=== PATIENT | female | born 1930 | race Caucasian/White ===

== ENCOUNTER 2016-12-07 17:55 | Inpatient (IN) | payer OTHER, BC ==
[~2016-12-07] VITALS: Ht 172.7 cm; Wt 65.8 kg
--- NOTE | ~2016-12-07 | HC ---
[facility] [place] [address] CONSULTATION Name: HOSEA LEDBETTER Room #: 443-P [facility] IN M.R.#: [id number] Admission: 12/07/16 Attend Phys: Oniel Fajardo MD Discharge: 12/09/16 Date of : 32 Report #: [id number] THIS REPORT FOR: //name// [facility]: [facility] REASON FOR CONSULTATION: Chest pain. HISTORY OF PRESENT ILLNESS: The patient is an 86-year-old female with history of diabetes, hypertension who presents from her halfway with chest pain. She reports that she has a sharp chest pain that occurs on the left lateral side of her chest that was associated with some radiation down her left arm. She reports that this pain is worse with movement, especially moving her left arm or twisting. When I pushed on this area she jumped and said this is exactly the same pain she had. She denies any exertional chest pressure. She denies any PND, orthopnea. She denies presyncope, she denies exertional dyspnea. PAST MEDICAL HISTORY: 1. Diabetes. 2. Hypertension. 3. Celiac trunk stent. SOCIAL HISTORY: She is a former smoker. Lives in a halfway. FAMILY HISTORY: Noncontributory. ALLERGIES: No known drug allergies. MEDICATIONS: Include antibiotics, losartan, gabapentin, trazodone, insulin, docusate, aspirin, alprazolam. REVIEW OF SYSTEMS: Twelve point review of systems was performed and was negative other than what we mentioned above. PHYSICAL EXAMINATION: VITAL SIGNS: Temperature is 36.4, pulse 66, respiration 20, blood pressure 124/62, sats are 99%. GENERAL: She is in no acute distress. HEENT: Oropharynx is clear. NECK: Supple. No thyromegaly. HEART: Regular rate and rhythm with no murmurs, rubs or gallops. She does not have elevated jugular venous pressure. She has reproducible chest pain along the left lateral ribs. This is an area of point tenderness. LUNGS: Clear bilaterally with no wheezes or crackles. ABDOMEN: Soft, nontender, nondistended. No hepatosplenomegaly. EXTREMITIES: No clubbing, cyanosis, edema. NEUROLOGIC: Cranial nerves 2-[address] [address] CONSULTATION Name: HOSEA LEDBETTER Room #: 443-P [facility] IN .R.#: [id number] Admission: 12/07/16 Attend Phys: Oniel Fajardo MD Discharge: 12/09/16 Date of : 32 Report #: [id number] LABORATORY DATA: Troponins are negative. Her CBC shows hemoglobin 12.4, white count 5.6, platelets 324. Her sodium is 133, potassium is 4.0, creatinine is 1.0, proBNP is 228. Her 12-lead EKG, I personally reviewed, shows normal sinus rhythm with no evidence of ischemia. Her chest x-ray shows no acute process. There is no evidence of CHF or pneumonia on the chest x-ray. IMPRESSION: In summary, the patient is an 86-year-old with a history of diabetes, hypertension, presenting with noncardiac chest pain, most likely costochondritis, which is musculoskeletal in nature. I recommend supportive medications for treatment of this discomfort. I would recommend an echocardiogram to evaluate her LV size and function. If this is normal, she is cleared for discharge. By: [id number] Alexy Saavedra MD /nt
--- NOTE | ~2016-12-07 | EKG ---
[address] [address] ELECTROCARDIOGRAM REPORT Name: HOSEA LEDBETTER Room #: 443-P ADM IN M.R.#: [id number] Admission: 12/07/16 Attend Phys: Oniel Fajardo MD Discharge: Date of : 32 Report #: [id number] THIS REPORT FOR: //name// [facility] ED Test Date: 2016-12-07 Test Time: 17:54:11 Pat Name: HOSEA LEDBETTER Department: Room: 443 Gender: F Technical Sales Manager: STEFANIE : 1930 Requested By: Sharon Loza Order Number: [id number] MD: Alexy Saavedra Measurements Intervals [place] Rate: 68 P: 70 SD: 186 QRS: 37 QRSD: 101 T: 20 QT: 400 QTc: 426 Interpretive Statements Sinus rhythm Compared to ECG 01/02/2016 16:41:20 No significant changes Electronically Signed On 12-08-2016 20:07:08 CDT by Alexy Saavedra [email or web address] <ELECTRONICALLY SIGNED> By: Alexy Saavedra MD 12/08/162006 53 53 Alexy Saavedra MD /JOHN
--- NOTE | ~2016-12-07 | 2DMMODE ---
[facility] [place] [address] 2 D/M-MODE ECHOCARDIOGRAM Name: HOSEA LEDBETTER Room #: 443-P [facility] IN M.R.#: [id number] Admission: 12/07/16 Attend Phys: Oniel Fajardo MD Discharge: Date of : 32 Date of Service: 12/09/16 1417 Report #: [id number] THIS REPORT FOR: //name// APPROVED REPORT Study performed: 12/09/2016 11:03:33 EXAM: Comprehensive 2D, Doppler, and color-flow Echocardiogram Patient Location: Echo lab/Room 443 Blood Pressure: 147/68 mmHg HR: 67 bpm Rhythm: NSR Other Information Study Quality: Adequate/Low parasternal window. Indications Noncardiac chest pain. Hx: CAD, HTN, HLP, DM 2D Dimensions RVDd: 31.93 mm LVEF(%): 54.05 (>50%) IVSd: 11.29 (7-11mm) LVOT Diam: 21.65 (18-24mm) LVDd: 38.77 mm PWd: 10.28 (7-11mm) LVDs: 28.12 (25-40mm) Aortic Root: 35.38 mm Hooper's LVEF: 54.05 % Volumes Left Atrial Volume (Systole) Single Plane 4CH: 18.48 mL Single Plane 2CH: 24.53 mL LA ESV Index: 14.00 mL/m2 Aortic Valve AoV Peak Gianfranco.: 1.27 m/s AI PHT: 409.81 ms AO Peak Gr.: 6.44 mmHg LV Max P.31 mmHg LV Max: 1.04 m/s AI Vmax: 3.92 m/s AI Charles: 2.77 m/s2 Mitral Valve [facility] [place] [address] [place] [address] 2 D/M-MODE ECHOCARDIOGRAM Name: ANATOLYHOSEA Room #: 443-P [facility] IN .R.#: [id number] Admission: 12/07/16 Attend Phys: Oniel Fajardo MD Discharge: Date of : 32 Date of Service: 12/09/16 1417 Report #: [id number] MV PHT: 47.27 ms MV E Max Gianfranco.: 0.68 m/s E/A Ratio: 0.8 MV A Gianfranco.: 0.90 m/s MV Decel. Time: 163.01 ms Pulmonary Valve PV Peak Gianfranco.: 0.65 m/s PV Peak Gr.: 1.71 mmHg Tricuspid Valve TR Peak Gianfranco.: 2.08 m/s RAP Estimate: 5.00 mmHg TR Peak Gr.: 17.23 mmHg RVSP: 22.00 mmHg Left Ventricle The left ventricle is normal size. There is normal LV segmental wall motion. Mild basal septal hypertrophy is present. Left ventricular systolic function is normal. LVEF is 55%. Grade I - abnormal relaxation pattern. Right Ventricle The right ventricle is normal size. The right ventricular systolic function is normal. Atria The left atrium size is normal. The right atrium size is normal. Aortic Valve The Aortic valve is sclerotic. Mild aortic regurgitation. There is no aortic valvular stenosis. Mitral Valve Mitral valve leaflets are thickened. Trace mitral regurgitation. Tricuspid Valve The tricuspid valve is normal in structure. There is mild tricuspid regurgitation. The right atrial pressure is estimated at 5 mmHg. Estimated PAP is 22mmHg. Pulmonic Valve The pulmonary valve is normal in structure. Mild pulmonic regurgitation. Great Vessels The aortic root is normal in size. Ascending aorta is not well visualized. IVC is normal in size and collapses >50% with inspiration. [address] [address] 2 D/M-MODE ECHOCARDIOGRAM Name: HOSEA LEDBETTER Room #: 443-P [facility] IN [facility]#: [id number] Admission: 12/07/16 Attend Phys: Oniel Fajardo MD Discharge: Date of : 32 Date of Service: 12/09/16 1417 Report #: [id number] Pericardium There is no pericardial effusion. <Conclusion> The left ventricle is normal size. Left ventricular systolic function is normal. The right ventricle is normal size. The left atrium size is normal. Mild aortic regurgitation. Trace mitral regurgitation. There is mild tricuspid regurgitation. The right atrial pressure is estimated at 5 mmHg. Estimated PAP is 22mmHg. <ELECTRONICALLY SIGNED> By: Orlando Whittington MD 12/09/16 141 16 16 Orlando Whittington MD /INF
[~2016-12-07 17:55] MED LIST: ADULT LOW DOSE81 MG PO; ALPRAZOLAM 0.0.25 M1 PO; AUGMENTIN 500-1 EACH PO; BUDEPRION SR100 MG PO; CALCIUM 500 WI1 EAC3 PO; CALCIUM CITRAT1 EA14 PO; COLACE100 MG PO; COQ-10100 MG PO; COZAAR 50 MG TA50 M1 PO; ENOXAPARIN30 MG/0.1 SUBQ; FISH OIL 1,0001 EAC5 PO; GLUCOPHAGE500 MG PO; HYDROCODON-ACE1 EACH PO; HYDROCODONE-APA1 TA1 PO; IRON325 PO; LIDODERM 5%1 PATC1 TOP; LIPITOR10 MG PO; LIPITOR20 MG PO; LORTAB 5-500 T1 EAC1 PO; LOSARTAN-HCTZ1 EAC1 PO; MIRALAX17 GM PO; MOBIC15 MG PO; MOTION RELIEF25 MG PO; MULTIVITAMINS PO; NEURONTIN 300M300 M2 PO; NORCO 7.5-3251 EACH; NOVOLOG100 UNIT/1 SUBQ; OCUVITE EXTRA1 EACH PO; OCUVITE LUTEIN1 EAC1 PO; OCUVITE TABLET1 EAC1 PO; OXYCONTIN10 M1 PO; PERCOCET 7.5-31 EACH PO; PHENERGAN 25 MG25 M1 PO; PLAVIX 75 MG TA75 M1 PER TUBE; PLAVIX 75 MG TA75 MG PO; PROBIOTIC1 EAC1 PO; PROTONIX40 M2 PO; PROZAC 10 MG CA10 MG PO; SENOKOT-S1 TA1 PO; TRAMADOL 50 MG50 MG PO; TYLENOL325 MG PO; VITAMIN D1000 UNI1 PO; WELCHOL PO; WELLBUTRIN 100100 MG PO; ZOCOR20 MG PO
[2016-12-07 17:57] VITALS: BP 117/92
[2016-12-07 18:11] LABS: ABSOLUTE NEUTROPHILS 3.4 thou/uL (1.4-8.2); BASOPHILS 0.4 % (0.0-2.0); EOSINOPHILS 4.7 % (0.0-3.0); HEMATOCRIT 36.7 % (37.0-47.0); HEMOGLOBIN 12.4 gm/dL (12.0-15.0); LYMPHOCYTES 25.6 % (24.0-44.0); MCHC 33.9 g/dL (28.0-37.0); MCV 85.6 fL (80.0-100.0); MONOCYTES 8.5 % (1.0-8.0); PLATELET COUNT 325 thou/uL (150-400); POLYS 60.8 % (36.0-66.0); RBC 4.29 mil/uL (4.20-5.00); RDW 14.6 % (10.5-14.5); WBC 5.6 thou/uL (4.0-11.0)
[2016-12-07 18:14] LABS: MANUAL DIFF NO
[2016-12-07 18:19] LABS: ANION GAP 5 mmol/L (7-16); BUN 17 mg/dL (7-18); CALCIUM 9.3 mg/dL (8.5-10.1); CHLORIDE 100 mmol/L (98-107); CO2 28 mmol/L (21-32); GLUCOSE 127 mg/dL (70-99); SODIUM 133 mmol/L (136-145)
[2016-12-07 18:28] LABS: TROPONIN-I < 0.04 ng/mL (<0.04-0.07)
[2016-12-07 18:42] LABS: MAGNESIUM 1.9 mg/dL (1.8-2.4)
[2016-12-07] MEDS ORDERED: TRAZODONE HCL100 MG PO (19:25)
[2016-12-07] MEDS ORDERED: PROTONIX 20 MG20 M1 PO (19:27)
[2016-12-07] MEDS ORDERED: METFORMIN HCL500 MG PO (19:31)
[2016-12-07] MEDS ORDERED: XANAX 0.25 MG0.25 MG PO (19:31)
[2016-12-07 20:05] LABS: URINE BILIRUBIN NEGATIVE (Negative); URINE BLOOD TRACE (Negative); URINE COLOR YELLOW; URINE GLUCOSE-RANDOM* NEGATIVE (Negative); URINE KETONES NEGATIVE (Negative); URINE LEUKOCYTES-REFLEX 2+ (Negative); URINE PROTEIN (DIPSTICK) NEGATIVE (Negative); URINE SPECIFIC GRAVITY <= 1.005 (1.003-1.035); URINE UROBILINOGEN 0.2 E.U./dl (0.2-1.0)
[2016-12-07 20:36] LABS: CASTS None Seen /LPF (None Seen); SQUAMOUS None Seen /LPF (0-3)
[2016-12-07 20:37] LABS: CRYSTALS None Seen /LPF (None Seen); URINE RBC 0-2 Rare /HPF (0-2); URINE WBC-REFLEX 6-15 Few /HPF (0-5)
[2016-12-07 23:33] VITALS: BP 133/60
[2016-12-08 08:00] VITALS: BP 124/62
[2016-12-08 10:39] LABS: CHOLESTEROL 188 mg/dL (<200); HDL CHOLESTEROL 92 mg/dL (>40); LDL CHOLESTEROL 86 mg/dL (<100); TRIGLYCERIDE 52 mg/dL (<150); TROPONIN-I < 0.04 ng/mL (<0.04-0.07); VLDL 10 mg/dL (<40)
[2016-12-08 12:00] VITALS: BP 140/57
[2016-12-08 16:00] VITALS: BP 125/62
[2016-12-09] VITALS (9 sets, daily range): BP systolic 127–147; BP diastolic 64–89
[2016-12-09] MEDS ORDERED: LEVAQUIN 250 M250 MG PO (16:12)
== END 2016-12-09 18:10 | disposition home or self-care (01) | DRG 313 ==
LOC: ER 17:55 → EROBS 19:59 → 4S 19:59
PROVIDERS: Emergency Medicine; Nurse Practitioner
DX: R07.89 Other chest pain (principal); N39.0 Urinary tract infection, site not specified; Z96.698 Presence of other orthopedic joint implants; E78.5 Hyperlipidemia, unspecified; F41.9 Anxiety disorder, unspecified; G47.00 Insomnia, unspecified; I10 Essential (primary) hypertension; E11.42 Type 2 diabetes mellitus with diabetic polyneuropathy; I25.10 Atherosclerotic heart disease of native coronary artery without angina pectoris; K58.9 Irritable bowel syndrome, unspecified; Z90.49 Acquired absence of other specified parts of digestive tract; Z98.42 Cataract extraction status, left eye; Z98.41 Cataract extraction status, right eye; Z87.81 Personal history of (healed) traumatic fracture; Z87.891 Personal history of nicotine dependence; Z79.82 Long term (current) use of aspirin; Z79.899 Other long term (current) drug therapy
CPT/HCPCS: 10100

== ENCOUNTER 2017-09-16 17:49 | Inpatient (IN) | payer OTHER, BC ==
[~2017-09-16] VITALS: Ht 172.7 cm; Wt 63.5 kg
--- NOTE | ~2017-09-16 | EKG ---
[place] [address] [facility] [place] [address] ELECTROCARDIOGRAM REPORT Name: HOSEA LEDBETTER Room #: 170-16 ADM IN M.R.#: [id number] Admission: 09/16/17 Attend Phys: Christ Hurst Discharge: Date of : 32 Report #: [id number] THIS REPORT FOR: //name// [facility] ED Test Date: 2017-09-16 Test Time: 20:34:36 Pat Name: HOSEA LEDBETTER Department: Room: 170 Gender: F Overage Shortage And Damage Clerk: ERIK : 1930 Requested By: Facundo John Order Number: [id number] MD: Sorin Soto Measurements Intervals [place] Rate: 73 P: 59 [place]: 173 QRS: 2 QRSD: 95 T: 0 QT: 404 QTc: 446 Interpretive Statements Sinus rhythm Inferior infarct, age indeterminate Compared to ECG 12/07/2016 17:54:11 Inferior Q waves are more prominent Electronically Signed On 09-17-2017 8:32:08 DIRECTOR SALES SUPPORT by Sorin Soto [email or web address] <ELECTRONICALLY SIGNED> By: Sorin Soto MD, [facility] 09/17/17831 33 33 Sorin Soto MD, [facility] /EPI
[~2017-09-16 17:49] MED LIST changes: +LEVAQUIN 250 M250 MG PO; +METFORMIN HCL500 MG PO; +PROTONIX 20 MG20 M1 PO; +TRAZODONE HCL100 MG PO; +XANAX 0.25 MG0.25 MG PO
[2017-09-16 18:04] VITALS: BP 125/44
[2017-09-16 19:22] LABS: URINE BLOOD TRACE (Negative); URINE CLARITY CLEAR; URINE COLOR YELLOW; URINE GLUCOSE-RANDOM* NEGATIVE (Negative); URINE KETONES 1+ (Negative); URINE LEUKOCYTES NEGATIVE (Negative); URINE NITRITE NEGATIVE (Negative); URINE PROTEIN (DIPSTICK) 2+ (Negative); URINE SPECIFIC GRAVITY >= 1.030 (1.005-1.035); URINE UROBILINOGEN 0.2 E.U./dl (0.2-1.0)
[2017-09-16 19:23] LABS: ICTOTEST (BILI CONFIRMATORY) Negative (Negative); URINE BILIRUBIN NEGATIVE (Negative)
[2017-09-16 19:33] LABS: CASTS None Seen /LPF (None Seen); CRYSTALS None Seen /LPF (None Seen); SQUAMOUS 0-3 Few /LPF (0-3)
[2017-09-16 19:34] LABS: BACTERIA 1-9 Few /HPF (None Seen); URINE RBC 0-2 Rare /HPF (0-2); URINE WBC None Seen /HPF (0-5)
[2017-09-16 20:58] LABS: ABSOLUTE NEUTROPHILS 5.2 thou/uL (1.4-8.2); BASOPHILS 0.5 % (0.0-2.0); EOSINOPHILS 0.8 % (0.0-3.0); HEMATOCRIT 40.4 % (37.0-47.0); HEMOGLOBIN 13.6 gm/dL (12.0-15.0); LYMPHOCYTES 17.7 % (24.0-44.0); MCHC 33.8 g/dL (28.0-37.0); MCV 85.8 fL (80.0-100.0); MONOCYTES 8.6 % (1.0-8.0); PLATELET COUNT 325 thou/uL (150-400); POLYS 72.4 % (36.0-66.0); RDW 13.5 % (10.5-14.5); WBC 7.2 thou/uL (4.0-11.0)
[2017-09-16 21:08] LABS: ANION GAP 10 mmol/L (7-16); BUN 21 mg/dL (7-18); CALCIUM 9.5 mg/dL (8.5-10.1); CHLORIDE 101 mmol/L (98-107); CO2 25 mmol/L (21-32); CREATININE 1.2 mg/dL (0.6-1.0); GLUCOSE 121 mg/dL (74-106); POTASSIUM 3.1 mmol/L (3.5-5.1); SODIUM 136 mmol/L (136-145)
[2017-09-16 21:18] LABS: TROPONIN-I < 0.04 ng/mL (<0.06)
[2017-09-16 23:58] VITALS: BP 139/116
[2017-09-17 10:17] VITALS: BP 148/72
[2017-09-17 13:22] VITALS: BP 148/72
[2017-09-17 13:43] VITALS: BP 160/71
[2017-09-17 19:26] VITALS: BP 138/64
[2017-09-18 04:11] VITALS: BP 148/59
[2017-09-18 07:42] VITALS: BP 158/76
[2017-09-18 10:04] VITALS: BP 158/76
[2017-09-18 10:14] VITALS: BP 158/76
== END 2017-09-18 11:00 | disposition home health service (06) | DRG 689 ==
LOC: ER 17:49 → 3W 21:40 → EROBS 21:40 → 3W 09-17 13:48
PROVIDERS: Emergency Medicine; Physician Assistant
DX: N39.0 Urinary tract infection, site not specified (principal); E43 Unspecified severe protein-calorie malnutrition; E87.6 Hypokalemia; F41.9 Anxiety disorder, unspecified; E86.0 Dehydration; I10 Essential (primary) hypertension; E11.9 Type 2 diabetes mellitus without complications; Z98.42 Cataract extraction status, left eye; Z98.41 Cataract extraction status, right eye; Z90.49 Acquired absence of other specified parts of digestive tract; Z87.81 Personal history of (healed) traumatic fracture; Z87.891 Personal history of nicotine dependence
CPT/HCPCS: 10879

== ENCOUNTER 2019-04-14 05:25 | Day surgery (SDC) | payer OTHER, BC ==
[~2019-04-14] VITALS: Ht 172.7 cm; Wt 66.2 kg
[~2019-04-14 05:25] MED LIST changes: +LOSARTAN POTAS100 MG PO; +STOOL SOFTENER100 MG PO
[2019-04-14 08:41] VITALS: BP 135/88
--- NOTE | 2019-04-14 08:48 | EKG ---
[address] [place] [address] ELECTROCARDIOGRAM REPORT Name: HOSEA LEDBETTER Room #: 150-4 [facility].RAmandeep#: [id number] ������������������ Admission: 04/14/19 ������������������ Attend Phys: Rigoberto Fontenot Discharge: ������������������ Date of : 32 Report #: [id number] ����������������������������������������������������������������� [id number] THIS REPORT FOR: //name// [facility] Test Date: 2019-04-14 Test Time: 08:41:11 Pat Name: HOSEA LEDBETTER Department: Room: 150 4 Gender: F Assistance Coordinator: MACO : 1930 Requested By: Rigoberto Cross Order Number: [id number] MD: Sorin Soto Measurements Intervals [place] Rate: 66 P: 48 [place]: 190 QRS: 7 QRSD: 93 T: 24 QT: 416 QTc: 436 Interpretive Statements Sinus rhythm Small inferior Q waves Compared to ECG 09/16/2017 20:34:36 No significant change was found Electronically Signed On 04-14-2019 8:48:32 CDT by Sorin Soto [email or web address] ��������������������������������������������� <ELECTRONICALLY SIGNED> ���������������������������������������� By: Sorin Soto MD, [facility] ��������������������������������������������� 04/14/19 0848 0 0 Sorin Soto MD, [facility] /EPI
[2019-04-14 11:51] VITALS: BP 135/88
--- NOTE | 2019-04-14 11:51 | O ---
[facility] [place] [address] OPERATIVE REPORT Name: HOSEA LEDBETTER Room #: 150-4 [facility] M.R.#: [id number] Admission: 04/14/19 ������������������ Attend Phys: Rigoberto Fontenot Discharge: ������������������ Date of : 32 Report #: [id number] THIS REPORT FOR: //name// CC: Rigoberto Concepcion [facility] PREOPERATIVE DIAGNOSIS: Painful lateral ankle hardware, status post right ankle bimalleolar ORIF. POSTOPERATIVE DIAGNOSIS: Painful lateral ankle hardware, status post right ankle bimalleolar ORIF. PROCEDURE PERFORMED: Removal of hardware from right lateral ankle. SURGEON: Rigoberto Cross M.D. TOOL GRINDER OPERATOR: Ivette Burrell PA-C. ANESTHESIA: General. FLUIDS: 300 mL crystalloid. TOURNIQUET TIME: Approximately 12 minutes. DESCRIPTION OF PROCEDURE: After proper identification of the patient and operative site in preoperative holding area, the operative site was signed by myself. Prophylactic antibiotics were given. We discussed removal of the patient's prominent lateral ankle hardware, which she reports was painful with shoe wear. After reviewing her options, she has elected to remove just the distal 3 screws which were prominent. The plate itself does not appear to be prominent and follows the bony contour nicely. Her preference would be to remove just the distal screws and not the plate and screw construct in its entirety, unless it shows obvious prominence. She was brought back to the operative suite after induction of satisfactory general anesthesia. The right lower extremity was sterilely prepped and draped in usual manner, elevated for exsanguination. Tourniquet was inflated to 300 mmHg. The patient had very little subcutaneous fat. The 3 distal screws were prominent over the lateral ankle and a small incision was made centered over these. The screws were removed without difficulty. The plate nicely following the contour of the lateral malleolus and did not appear to be prominent. This area was thoroughly irrigated with normal saline and closed with nylon sutures in an interrupted manner. Soft sterile dressing was applied. She was awakened and transferred to the recovery room in stable condition. ��������������������������������������������� <ELECTRONICALLY SIGNED> ���������������������������������������� By: Rigoberto Cross MD ��������������������������������������������� 04/14/19 1151 1021 1035 Rigoberto Cross MD /nt
== END 2019-04-14 11:10 | disposition home or self-care (01) ==
LOC: OR 05:25 → TBA 05:25 → OR 06:59
DX: T84.84XA Pain due to internal orthopedic prosthetic devices, implants and grafts, initial encounter (principal); M25.571 Pain in right ankle and joints of right foot; N28.9 Disorder of kidney and ureter, unspecified; Z98.890 Other specified postprocedural states; Z87.440 Personal history of urinary (tract) infections; Z79.82 Long term (current) use of aspirin; Z79.899 Other long term (current) drug therapy; Y83.8 Other surgical procedures as the cause of abnormal reaction of the patient, or of later complication, without mention of misadventure at the time of the procedure
CPT/HCPCS: 50010; 50101

== ENCOUNTER 2019-07-12 11:11 | Emergency (ER) | payer OTHER, BC ==
[~2019-07-12] VITALS: Ht 167.6 cm; Wt 79.8 kg
[2019-07-12 11:32] LABS: ABSOLUTE NEUTROPHILS 4.6 thou/uL (1.4-8.2); BASOPHILS 0.7 % (0.0-2.0); EOSINOPHILS 0.3 % (0.0-3.0); HEMATOCRIT 42.7 % (37.0-47.0); HEMOGLOBIN 14.4 gm/dL (12.0-15.0); LYMPHOCYTES 27.4 % (24.0-44.0); MCH 29.5 pg (26.0-34.0); MCHC 33.7 g/dL (28.0-37.0); MCV 87.5 fL (80.0-100.0); MONOCYTES 10.7 % (1.0-8.0); PLATELET COUNT 388 thou/uL (150-400); POLYS 60.9 % (36.0-66.0); RBC 4.88 mil/uL (4.20-5.00); RDW 13.5 % (10.5-14.5); WBC 7.6 thou/uL (4.0-11.0)
[2019-07-12 11:41] LABS: ANION GAP 13 mmol/L (7-16); BUN 16 mg/dL (7-18); CALCIUM 10.6 mg/dL (8.5-10.1); CHLORIDE 99 mmol/L (98-107); CO2 24 mmol/L (21-32); CREATININE 1.2 mg/dL (0.6-1.0); GLUCOSE 114 mg/dL (74-106); POTASSIUM 4.2 mmol/L (3.5-5.1); SODIUM 136 mmol/L (136-145)
[2019-07-12 11:50] LABS: TROPONIN-I <0.06 ng/mL (<0.06)
[2019-07-12] MEDS ORDERED: PANTOPRAZOLE SO40 M1 PO (15:53)
[2019-07-12 15:54] VITALS: BP 173/89
--- NOTE | 2019-07-13 16:55 | EKG ---
[place] [address] [facility] [employer] [place] [address] ELECTROCARDIOGRAM REPORT Name: HOSEA LEDBETTER [facility] [id number] Admission: 07/12/19 Attend Phys: Discharge: 07/12/19 Date of : 32 Report #: [id number] THIS REPORT FOR: //name// [facility] ED Test Date: 2019-07-12 Test Time: 11:21:27 Pat Name: HOSEA LEDBETTER Department: Room: Gender: F Car Head Liner Installer: : 1930 Requested By: Facundo John Order Number: [id number] MD: Sorin Soto Measurements Intervals [place] Rate: 85 P: 95 MT: 168 QRS: 65 QRSD: 97 T: 9 QT: 388 QTc: 462 Interpretive Statements Sinus rhythm Nonspecific ST segment abnormality Poor R wave progression Compared to ECG 04/14/2019 08:41:11 Nonspecific change in the ST segments Electronically Signed On 07-13-2019 16:55:21 TECHNICAL PROJECT MANAGER by Sorin Soto [email or web address] <ELECTRONICALLY SIGNED> By: Sorin Soto MD, [facility] 07/13/19 1655 D: 111120 20 Sorin Soto MD, [facility] /EPI
== END 2019-07-12 15:55 | disposition home or self-care (01) ==
LOC: ER 11:11
PROVIDERS: Emergency Medicine
DX: R07.89 Other chest pain (principal); I10 Essential (primary) hypertension; E11.9 Type 2 diabetes mellitus without complications; E78.5 Hyperlipidemia, unspecified; Z90.49 Acquired absence of other specified parts of digestive tract; K58.9 Irritable bowel syndrome, unspecified; F32.9 Major depressive disorder, single episode, unspecified; Z87.891 Personal history of nicotine dependence

== ENCOUNTER 2020-08-01 13:27 | Inpatient (IN) | payer OTHER, BC ==
[~2020-08-01] VITALS: Ht 172.7 cm; Wt 64.3 kg
[~2020-08-01 13:27] MED LIST changes: +PANTOPRAZOLE SO40 M1 PO
[2020-08-01 13:41] VITALS: BP 144/53
[2020-08-01 14:39] LABS: ABSOLUTE NEUTROPHILS 5.3 thou/uL (1.4-8.2); BASOPHILS 0.2 % (0.0-2.0); EOSINOPHILS 2.2 % (0.0-3.0); HEMATOCRIT 39.1 % (37.0-47.0); HEMOGLOBIN 12.7 gm/dL (12.0-15.0); LYMPHOCYTES 12.3 % (24.0-44.0); MCH 29.2 pg (26.0-34.0); MCHC 32.5 g/dL (28.0-37.0); MCV 89.6 fL (80.0-100.0); MONOCYTES 5.3 % (1.0-8.0); PLATELET COUNT 286 thou/uL (150-400); RBC 4.36 mil/uL (4.20-5.00); RDW 14.1 % (10.5-14.5); WBC 6.6 thou/uL (4.0-11.0)
[2020-08-01 14:45] LABS: CALCIUM 9.8 mg/dL (8.5-10.1); POTASSIUM 3.9 mmol/L (3.5-5.1)
[2020-08-01 14:52] LABS: ALBUMIN 3.5 g/dL (3.4-5.0); TOTAL BILIRUBIN 0.3 mg/dL (0.2-1.0); TOTAL PROTEIN 6.9 g/dL (6.4-8.2)
[2020-08-01 17:46] VITALS: BP 150/69
[2020-08-01] MEDS ORDERED: AMLODIPINE BESY10 MG PO (19:13)
[2020-08-01 19:26] VITALS: BP 145/50
[2020-08-01 19:58] VITALS: BP 141/57
[2020-08-02 04:16] VITALS: BP 174/82
--- NOTE | 2020-08-02 04:58 | NUR ---
PT ARRIVED FROM THE ER @1940 A&OX4 NULATO. ADMISSION DONE AND PT ORIENTED TO THE UNIT. IV INTACT AND FLUIDS INFUSING. PT DTR CALLED AND THIS NURSE UPDATED ON CARE. VOIDS VIA BED CALHOUN. PT MOANS AND TEARFUL DUE TO PAIN. IV PAIN MEDICATION GIVEN. SCD'S ON BLE. PT NPO AFTER MIDNIGHT. FALL PREC IN PLACE AND WILL CONT TO MONITOR.
[2020-08-02 07:30] VITALS: BP 149/72
--- NOTE | 2020-08-02 08:12 | NUR ---
ASSESSMENT: CM REVIEWED CHART. PT IS FROM [facility]. CM SPOKE WITH DAUGHTERS DPOA/DAUGHTER LISBETH SHARPE [phone]. PT NORMALLY AMBULATES USING A WALKER. PT IS INDEPENDENT WITH ADLS. PT HAD A FALL AND HAS A COMPRESSION FX. PT IS TO LIKELY GET KYPHOPLASTY TODAY, COVID TEST IS STILL CURRENTLY PENDING. PT HAS BEEN TO [facility] IN THE PAST AND ENJOYED IT AND ALSO HAS HAD HOME HEALTH THROUGH [facility]. CM DISCUSSED WITH DAUGHTER PENDING PTS PRGORESSION AND PT/OT EVALS POST OP SHE MAY NEED HH VS POST ACUTE. REFERRALS SENT TO BOTH [facility]. DPOA STATES SHE WOULD HAVE TO DISCUSS WITH HER MOTHER POST OP. CM WILL CONTINUE TO FOLLOW TO ASSIST NEEDED.
[2020-08-02 17:15] VITALS: BP 163/98
[2020-08-02 19:21] VITALS: BP 150/78
[2020-08-02 20:02] VITALS: BP 150/78
--- NOTE | 2020-08-02 20:52 | NUR ---
ASSUMED CARE OF PT AT 0700. PT IS A&O2 AND VITAL SIGNS ARE STABLE. PT REPORTS PAIN 10/10 TO BACK. KYPHOPLASTY THIS AM. AT APPROXIMATELY 1300 PT BECAME INCRESINGLY AGGITATED AND REPORTED SOB AND INCREASED PAIN, MAKING MULTIPLE ATTEMPTS TO GET OUT OF BED. PT ADMINISTERED PO PAIN MEDICATIONS AND ANXIETY MEDICATIONS, RAPID RESPONSE CALLED, IV FENTYNL ADMINISTERD AND ADDITIONAL ANXIETY MEDICATIONS PER DR ORDERS. PT CALLED SHORTLY AFTER AND SLEPT FOR ABOUT 2 HOURS. PT CONTINUES TO HAVE PERIODS OF INCREASED ANXIETY AND PAIN REQUIRING STAFF TO BE AT BEDSIDE FOR SAFETY. FALL PRECAUTIONS IN PLACE AND NURSING WILL CONTINUE TO MONITOR.
--- NOTE | 2020-08-03 02:49 | NUR ---
PT AOX4, RESPONDS TO ORIENTATION PROMPTS WITHIN NORMAL LIMITS, NOTED TO HAVE INTERMITTENT FORGETFULNESS AND ANXIETY. PT REPORTS PAIN, ASSESSED WITH FLACC OF 5 WITH REPOSITIONING AND MOVEMENT PT GRIMACING, TENSING, MOANING, AND RESTLESS. PT RECEIVING PRN PO XANAX Q6HR AND PRN PO OXYCODONE Q4HR WITH PRN IV FENTANYL Q4HR AND PRN PO APAP Q4HR AVAILABLE. PT TOLERATING PO INTAKE OF FLUIDS AND REGULAR DIET WITHOUT ISSUE. PT RESTING IN BED THROUGHOUT SHIFT, FREQUENT REPOSITIONING ENCOURAGED. PT NOTED TO SHIFT INDEPENDENTLY WHILE IN BED. PT NOTED TO AWAKEN PLEASANTLY CONFUSED, EASILY REDIRECTED, FALLING BACK ASLEEP EASILY. PT ENCOURAGED TO NOTIFY STAFF FOR ALL NEEDS, CALL LIGHT WITHIN REACH, BED ALARM ON, BED IN LOWEST POSITION, ROOM REMAINS NEAR NURSES STATION, FREQUENT MONITORING WILL CONTINUE.
[2020-08-03 04:21] VITALS: BP 160/66
--- NOTE | 2020-08-03 07:56 | NUR ---
CALLED CONSULT TO [facility] AT THIS TIME.
[2020-08-03 08:05] VITALS: BP 154/73
--- NOTE | 2020-08-03 14:36 | NUR ---
PATIENT IS A CANDIDATE FOR [facility]. LIKELY ADMISSION ON 08/04/20 IF PATIENT/FAMILY IN AGREEMENT. IF READY FOR ADMISSSION ON 08/04/20, PLEASE CONTACT ACUTE APARTMENT HOTEL MANAGER COIN MACHINE MECHANIC, RACH AT [phone].
[2020-08-03 14:55] VITALS: BP 129/59
[2020-08-03 21:05] VITALS: BP 137/72
--- NOTE | 2020-08-04 01:55 | NUR ---
THIS NURSE HAD PATIENT AT SHIFT CHANGE TO APPROX. 2345. PATIENT IS ALERT AND ORIENTED X4 WITH FORGETFULNESS. SETTING OFF BED ALARM WITHOUT USING THE CALL LIGHT BECAUSE SHE NEEDED TO USE THE RESTROOM. COOPERATIVE WITH CARE. MEDICATED FOR ANXIETY AND PAIN. UP TO BATHROOM WITH WALKER AND SBA. RESTING QUIETLY.
--- NOTE | 2020-08-04 06:45 | NUR ---
ASSUMED PT CARE AFTER 2300. PT WITH EPISODES OF RESTLESSNESS AND ANXIETY. PT REPORTS PAIN THROUGHOUT GENERALIZED BODY. PT RECEIVING PRN IV FENTANYL Q4HR AND PRN PO OXYCODONE Q4HR WITH PRN PO APAP Q4HR AVAILABLE. PT ALSO RECEIVING PRN PO XANAX Q6HR. PT TOLERATING PO INTAKE OF FLUIDS AND REGULAR DIET. PT AMBULATING WITH GAIT BELT, WALKER, AND X1 ASSIST TO TOILET. PT NOTED TO HAVE INCREASED RESTLESSNESS WITH TOILETING NEEDS. PT ENCOURAGED TO NOTIFY STAFF FOR ALL NEEDS, CALL LIGHT WITHIN REACH, BED ALARM ON, BED IN LOWEST POSITION, ROOM REMAINS NEAR NURSES STATION, FREQUENT MONITORING WILL CONTINUE.
[2020-08-04 09:04] VITALS: BP 146/85
--- NOTE | 2020-08-04 09:53 | NUR ---
assumed care at 0700. pt is a&o x3. pt is confused and forgetful. pt has severe anxiety and always trying to get up. VSS. call light within reach. pt has dimimished lung sounds and regular heart sounds. pt complains of pain and was giving gel instead of fentanyl due to pt being lethageric. IV on Right upper arm and wrist is intact and shows no signs of redness or swelling. pt denies soa, nausea, vomitting, or diarrhea. fall precaution.
[2020-08-04] MEDS ORDERED: PERCOCET 5-3251 EACH PO (10:08)
--- NOTE | 2020-08-04 11:24 | NUR ---
CARE TEAM INDICATED THAT PT IS MEDICALLY STABLE TO DISCHARGE TO [facility] ACUTE INPATIENT REHAB THIS DAY. CM CALLED AND SPOKE WITH PT'S DTR/DPOA LISBETH SHARPE WHO WAS AT PT'S BESIDE THIS MORNING. SHE IS AWARE AND AGREEABLE. PT IS TO DC TO [facility] THIS DAY. NO OTHER CM INTERVENTION INDICATED. REPORT TO BE CALLED TO . CASE CLOSED.
== END 2020-08-04 14:13 | DRG 516 ==
LOC: ER 13:27 → 4S 15:26 → EROBS 15:26 → 4S 15:26
PROVIDERS: Physician Assistant; ADMIT Hospitalist; ATTEND Hospitalist
PROC: 0PS43ZZ Reposition Thoracic Vertebra, Percutaneous Approach (ICD-10-PCS; principal; 2020-08-02)
PROC: 0PU43JZ Supplement Thoracic Vertebra with Synthetic Substitute, Percutaneous Approach (ICD-10-PCS; principal; 2020-08-02)
DX: S22.089A Unspecified fracture of T11-T12 vertebra, initial encounter for closed fracture (principal); R65.10 Systemic inflammatory response syndrome (SIRS) of non-infectious origin without acute organ dysfunction; Z20.828 Contact with and (suspected) exposure to other viral communicable diseases; I10 Essential (primary) hypertension; E78.5 Hyperlipidemia, unspecified; F32.9 Major depressive disorder, single episode, unspecified; F41.9 Anxiety disorder, unspecified; Z96.698 Presence of other orthopedic joint implants; S09.90XA Unspecified injury of head, initial encounter; E11.42 Type 2 diabetes mellitus with diabetic polyneuropathy; M81.0 Age-related osteoporosis without current pathological fracture; K21.9 Gastro-esophageal reflux disease without esophagitis; Z79.899 Other long term (current) drug therapy; Z90.49 Acquired absence of other specified parts of digestive tract; Z98.42 Cataract extraction status, left eye; Z98.41 Cataract extraction status, right eye; Z87.891 Personal history of nicotine dependence; W18.39XA Other fall on same level, initial encounter; Y93.89 Activity, other specified; Y92.89 Other specified places as the place of occurrence of the external cause; Y99.8 Other external cause status
CPT/HCPCS: 10102

== ENCOUNTER 2020-08-04 13:14 | Inpatient (IN) | payer OTHER, BC ==
[~2020-08-04] VITALS: Ht 172.7 cm; Wt 65.5 kg
[~2020-08-04 13:14] MED LIST changes: +AMLODIPINE BESY10 MG PO; +PERCOCET 5-3251 EACH PO
[2020-08-04 14:00] VITALS: BP 145/74
--- NOTE | 2020-08-04 18:41 | NUR ---
ASSUMED CARE OF PT AT 1400 WHEN PT BROUGHT TO UNIT. RECEIVED REPORT FROM NURSE ON PREVIOUS UNIT. PT ASSISTED INTO BED BY NURSING STAFF. DAUGHTER IS AT THE BEDSIDE AND SIGNED CONSENTS. PT IS A&OX1-2, VITAL SIGNS ARE STABLE. OBTAINED ADMISSION HX AND ASSESSMENT, VITAL SIGNS, HEIGHT AND WEIGHT, CONSULTS CALLED. PT REPORTS PAIN, MANAGED WITH PO MEDICATIONS. PT IS ANXIOUS AND MAKES MULTIPLE ATTEMPTS TO GET OUT OF BED. FALL PRECAUTIONS IN PLACE AND NURSING WILL CONTINUE TO MONITOR.
[2020-08-04 20:00] VITALS: BP 153/81
--- NOTE | 2020-08-05 02:19 | NUR ---
assumed care approx 1900 evening 08/04. pt lying in bed at change of shift somewhat impulsive at times trying to climb out of bed. pt up to bathroom with walker and 1 assist at hs. pt took hs meds with water tolerating well. pt somewhat restless and stated the bed is uncomfortable. pt given pain med for back pain and appears to be sleeping soundly. bed alarm on and call light in reach. will continue to monitor.
[2020-08-05 05:30] LABS: HEMATOCRIT 35.6 % (37.0-47.0); HEMOGLOBIN 11.9 gm/dL (12.0-15.0); MCH 29.9 pg (26.0-34.0); MCHC 33.4 g/dL (28.0-37.0); MCV 89.6 fL (80.0-100.0); RBC 3.98 mil/uL (4.20-5.00); WBC 4.8 thou/uL (4.0-11.0)
[2020-08-05 05:45] LABS: CALCIUM 8.9 mg/dL (8.5-10.1); CREATININE 1.1 mg/dL (0.6-1.0); POTASSIUM 3.1 mmol/L (3.5-5.1)
--- NOTE | 2020-08-05 08:00 | NUR ---
ASSUMED CARE AT 0700. PATIENT IS ALERT AND ORIENTED X4. PATIENT BEDOYA'S, PATIENT HAS LEFT BKA. DRESSING IS DRY AND INTACT. LUNGS ARE CLEAR. ABD IS SOFT WITH BSX4. PATIENT IS HEMODIALYSIS PATIENT. PATIENT HAS LEFT TESSIO FOR DIALYSIS. PATIENT HAS S.L. IN HER RIGHT F.A. PLAN DIALYSIS TODAY. PATIENT IS ANURIC. FALL AND SAFETY PROTOCOLS IN PLACE. DENIES PAIN AT THIS TIME. CONTINUES TO PROGRESS TOWARDS D/C GOALS. WILL CONTINUE TO MONITER.
--- NOTE | 2020-08-05 09:31 | NUR ---
ASSUMED CARE AT 0700. PATIENT IS ALERT AND ORIENTED X4. PATIENT BEDOYA'S, UP IN THE CHAIR FOR MEALS. LUNGS ARE CLEAR AND DEMINISHED. ABD IS SOFT WITH BSX4. PATIENT IS VOIDING JOSE COLORED URINE. FALL AND SAFETY PROTOCOLS IN PLACE. C/O BACK PAIN. MEDICATED WITH PRN PAIN MED. CONTINUES TO PROGRESS SLOWLY TOWARDS D/C GOALS. WILL CONTINUE TO MONITER.
[2020-08-05 19:55] VITALS: BP 129/65
--- NOTE | 2020-08-05 22:27 | NUR ---
PT ASSESSMENT COMPLETED AND VSS. MEDS GIVEN ORDERED AND WELL TOLERATED. FALL PRECAUTIONS IN PLACE. UP TO THE BSC WITH ASST/GAIT/WALKER. STEADY. VOIDING MODERATE AMOUNT OF YELLOW URINE. PRN PAIN MEDICATION WORKING WELL. ASST WITH REPOSITION FOR COMFORT. SLEEPING WELL. WILL CONTINUE TO MONITOR FREQUENTLY.
[2020-08-06 05:36] LABS: GLYCOHEMOGLOBIN (HGB A1C) 5.9 % (4.8-5.6)
[2020-08-06 08:16] VITALS: BP 132/69
--- NOTE | 2020-08-06 20:04 | NUR ---
ASSUMED CARE OF PT AT 0715. PT IS A&OX4, IS FORGETFUL & GRAYLING. IS ON ROOM AIR. IS STABLE. REPORTS PAIN IN BACK THAT IS BEING MANAGED WITH PAIN MEDS & OTHER THERAPUETIC TECHNIQUES. PT IS UP WITH 1 ASSIST, GB, WALKER. FALL PRECAUTIONS & HOURLY ROUNDING MAINTAINED THIS SHIFT. LABS & VITALS REVIEWED. PT IS CURRENTLY ASLEEP IN BED. CALL LIGHT WITHIN REACH. WILL CONTINUE TO MONITOR.
[2020-08-06 20:12] VITALS: BP 138/79
--- NOTE | 2020-08-07 00:39 | NUR ---
PT ASSESSMENT COMPLETED AND VSS. MEDS GIVEN ORDERED AND WELL TOLERATED. FALL PRECAUTIONS IN PLACE. UP TO THE BSC WITH ASST/GAIT/WALKER. VOIDING MODERATE AMOUNT OF YELLOW URINE. PRN PAIN MEDICATION WORKING WELL FOR BACK PAIN. PT MOVING FROM LEFT TO RIGHT IN THE BED ON HER OWN. SLEEPING WELL. WILL CONTINUE TO MONITOR FREQUENTLY.
--- NOTE | 2020-08-07 09:20 | NUR ---
chart review. son visited with natalya at bedside, cm cont to wear face mask and shield during visit. intro to cm, team meeting and dcp. she was up sitting in recliner chair, getting ready for breakfast. she reported " lives alone. has walker, manage own medication and daughter helps some. no longer drives. hh in past and possible rehab in past"/natalya. noted in chart she lives in [place] at [facility], [facility]. will cont following as needed for dc needs.
[2020-08-07 09:32] VITALS: BP 132/69
--- NOTE | 2020-08-07 10:00 | NUR ---
ASSUMED CARE AT 0700. PT IS ALERT AND ORIENTATED, FORGETFUL AT TIMES. DENIES ANY PAIN FOR NOW. AMBULATES WITH MIN ASSIST USING HER WALKER. PT OFFERED PAIN MEDS SEVERAL TIMES AND DENIES ANY PAIN. PARTICIPATING IN THERAPY. HAD NO BM SINCE 08/04, ORDERS RECEIVED FOR MIRALAX AND MAG CITRATE. PT TOOK WITH NO RELIEF OF BOWELS. SHE REPORTED PASSING ONLY FLATUS. APPETITE IS FAIR. NO OTHER CONCERNS, WILL CONT TO MONITOR.
--- NOTE | 2020-08-07 13:06 | NUR ---
Nutrition: Pt admitted to rehab unit S/P kyphoplasty for T12 compression fracture. Seen per consult. Typically eating < 50% meals and reports not a big eater. Weights stable. Food preferences obtained, discussed ordering meal if pt wants less on her trays. She is trying to eat more fiber, drink more fluids and no BM since 08/04. Bowel regimen started. Also on vitamin D supplement for deficiency. Pt refuses supplements at this time. Will continue to monitor nutritional parameters, need for any interventions. Low risk.
[2020-08-07 20:10] VITALS: BP 138/71
--- NOTE | 2020-08-08 04:33 | NUR ---
assumed care approx 1900 evening 08/07. pt somewhat restless at hs saying she needed to have a bm, pt up with assist to bathroom. pt sat on toilet and had moderate formed bm. pt much more relaxed after bm and appears to be sleeping soundly. bed alarm on and call light in reach. will continue to monitor.
--- NOTE | 2020-08-08 07:55 | NUR ---
ASSUMED CARE AT 0700. PATIENT IS ALERT AND ORIENTED X4. PATIENT BEDOYA'S, CONCRETE CONVEYOR OPERATOR ARE EQUAL. LUNGS ARE CLEAR . ABD IS SOFT WITH BSX4. PATIENT IS UP TO THE BATHROOM TO VOID JOSE COLORED URINE. PATIENT IS UP IN THE CHAIR FOR MEALS. FALL AND SAFETY PROTOCOLS IN PLACE. C/O BACK PAIN. MEDICATED WITH PRN PAIN MED. CONTINUES TO PROGRESS SLOWLY TOWARDS D/C GOALS. WILL CONTINUE TO MONITER
[2020-08-08 08:00] VITALS: BP 137/71
--- NOTE | 2020-08-08 12:52 | NUR ---
team meeting, reccomendation: family to assist with medication dc 4th with [facility] ( pt, ot, st, nursing ) back to [facility] with [facility].
[2020-08-08 21:10] VITALS: BP 124/70
--- NOTE | 2020-08-09 01:57 | NUR ---
ASSUMED CARE OF PT AT 1900HRS. PT AOX2-3 AND LETS NEEDS BE KNOWN. FALL PRECAUTION IN PLACE. PT REPORTS SOME BACK PAIN BUT DENIES NAUSEA OR SOA. PT AMBULATED TO THE TOILET WITH ONE ASSIST AND WALKER. ASSESSMENT CHARTED. PT WAS ABLE TO GET COMFORTABLE AND SLEEP PART OF THE SHIFT. VSS AND NO S/S OF ACUTE DISTRESS. WILL CONTINUE TO MONITOR FOR CHANGES.
--- NOTE | 2020-08-09 07:53 | NUR ---
ASSUMED CARE AT 0700. PATIENT IS ALERT AND ORIENTEDX3. 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 LUNGS ARE CLEAR AND DEMINISHED. ABD IS SOFT WITH BSX4. PATIENT IS UP WITH ASSIST OF 1 STAFF AND GAIT BELT TO THE BATHROOM TO VOID JOSE COLORED URINE. UP IN CHAIR FOR MEALS. FALL AND SAFETY PROTOCOLS IN PLACE. DENIES PAIN AT THIS TIME. CONTINUES TO PROGRESS TOWARDS D/C GOALS. WILL CONTINUE TO MONITER.
[2020-08-09 08:00] VITALS: BP 94/47
--- NOTE | 2020-08-09 12:08 | NUR ---
cm provided updates to [facility], [facility] will need covid test so they can manage her medication back at [facility]. son passed on information to MD and [employer] to order covid test. cm passed on information to bedside nurse. cm received voice message from her daughter about medication question, cm passed on medication question to BLEND TECHNICIAN.
[2020-08-09 20:09] VITALS: BP 134/60
--- NOTE | 2020-08-09 23:33 | NUR ---
PT ASSESSMENT COMPLETED AND VSS. MEDS GIVEN ORDERED AND WELL TOLERATED. FALL PRECAUTIONS IN PLACE. PT SAID THAT SHE WANTED A PAIN PILL THIS EVENING. SHE IS TRYING TO REDUCE THE NUMBER OF TIMES SHE IS TAKING PAIN MEDICATION. SHE IS CONCERNED ABOUT GETTING ADDICTED TO IT. ASST WITH REPOSITION FOR COMFORT. VOLTAREN GEL HELPFUL FOR BACK PAIN. SLEEPING WELL AT THIS TIME. WILL CONTINUE TO MONITOR FREQUENTLY.
[2020-08-10 08:00] VITALS: BP 129/72
--- NOTE | 2020-08-10 15:30 | NUR ---
ASSUMED CARES AT 0700. PT AWAKE, ALERT AND ORIENTED *4. C/O MILD LOWER BACK PAIN, MUSCLE RELAXER, LIDOCAINE PATCH AND VOLTAREN GEL ADMINISTERED PER ORDER. PT PARTICIPATED WELL ON ALL THERAPIES AND CONTINUES TO PROGRESS TOWARDS DC GOALS. UP WITH SBA, GB AND WALKER. FREQ. VISUAL CHECKS. CALL LIGHT WITHIN REACH. FALL PRECAUTIONS IN PLACE
[2020-08-10 21:02] VITALS: BP 141/63
--- NOTE | 2020-08-11 02:30 | NUR ---
ASSUMED CARE APPROX 1900 EVENING 07/11. PT SITTING UP IN RECLINER AT CHANGE OF SHIFT. PT ALERT AND ORIENTED X4, FORGETFUL AT TIMES. PT PLEASANT AND COOPERATIVE. PT APPEARS TO BE SLEEPING SOUNDLY WITH HOURLY ROUNDING CHECKS. BED ALARM ON AND CALL LIGHT IN REACH. WILL CONTINUE TO MONITOR.
[2020-08-11 07:30] VITALS: BP 159/64
[2020-08-11] MEDS ORDERED: HYOSCYAMINE0.125 M1 PO (08:13)
[2020-08-11] MEDS ORDERED: EFFEXOR XR75 MG PO (08:13)
[2020-08-11] MEDS ORDERED: LIDOPATCH1 EACH TRANSDERM (08:13)
[2020-08-11] MEDS ORDERED: VITAMIN D325 MC1 PO (08:13)
[2020-08-11] MEDS ORDERED: VOLTAREN GEL 1100 G2 TOP (08:13)
[2020-08-11] MEDS ORDERED: PROBIOTIC1 EAC1 PO (08:13)
[2020-08-11] MEDS ORDERED: TYLENOL325 MG PO (08:13)
[2020-08-11 08:34] VITALS: BP 159/64
--- NOTE | 2020-08-11 09:21 | PLAN ---
[facility] [place] [address] REHAB UNIT PLAN OF CARE Name: HOSEA LEDBETTER Room #: 514-P ADM IN M.R.#: [id number] Admission: 08/04/20 Attend Phys: Kenton Gilbert MD Discharge: Date of : 34 Report #: [id number] THIS REPORT FOR: cc: Carlene Galeano MD,Carlene Gilbert,Kenton Ayala MD ~ CC: Kenton Galeano DATE OF SERVICE: 08/05/2020 PROGRESS NOTE AND OVERALL PLAN OF CARE SUBJECTIVE: The patient was seen back today in followup. She was in no distress. Temperature 36.7, pulse 102, respirations 16, blood pressure 154/83. She has been alert. She has been working in therapies with transfers, contact guard and gait 35 feet min assist with a front-wheeled walker. In occupational therapy, she has been working on basic dressing and bathing activities. In speech therapy, she is noted to have mild auditory deficits with moderate to severe cognitive deficits and moderate to severe memory deficits. ASSESSMENT: An 89-year-old female with the following problem list: 1. Lumbar radiculopathy with bilateral lower extremity weakness. 2. Acute T12 compression fracture, status post kyphoplasty, 08/02/2020. 3. Lumbar spinal stenosis. 4. Cervical neural foraminal stenosis. 5. Premorbid peripheral neuropathy. 6. Hypertension. 7. Hyperlipidemia. 8. Osteoporosis. 9. Hard of hearing. 10. Anxiety. 11. Constipation. PLAN: The overall plan of care is based on the preadmission screen and information garnered from therapy assessments. 1. Estimated length of stay probably around 10-14 days. 2. Medical prognosis is reasonably good. 3. Anticipated interventions include the interdisciplinary acute inpatient rehabilitation program. 4. Anticipated functional outcomes would be for the patient to hopefully improve as far as her mobility and ADLs, so that she can become independent at 4-wheeled walker level as well as overall improvement in cognition. 5. Discharge destination would be back to her apartment. She will likely need some increased assistance. 6. Expected therapy by discipline includes PT, OT and speech 1 hour per day [address] [address] REHAB UNIT PLAN OF CARE Name: HOSEA LEDBETTER Room #: 514-P ADM IN .R.#: [id number] Admission: 08/04/20 Attend Phys: Kenton Gilbert MD Discharge: Date of : 34 Report #: [id number] each 5 days a week throughout the duration of the acute inpatient rehabilitation stay. The patient's prognosis for significant practical improvement within a reasonable period of time appears good. Given the patient's complex medical condition and risk of further medical complications, rehabilitation services could not be safely provided at a lower level of care such as a assisted facility. The patient is involved with the multiple automobile sales consultant physicians and will be involved in the interdisciplinary acute inpatient rehabilitation program with goal of maximizing her functional independence, so she can return back to the home setting. <ELECTRONICALLY SIGNED> By: Kenton Gilbert MD 08/11/20 0921 [id number] Kenton Gilbert MD /PMT
[2020-08-11] MEDS ORDERED: PERCOCET 5-3251 EACH PO (10:06)
--- NOTE | 2020-08-11 10:26 | NUR ---
ASSUMED CARES AT 0700. PT AWAKE, ALERT AND ORIENTED*4. VERY PALA, HEARING AIDES IN PLACE. VITALS REMAIN STABLE. PT C/O BACK PAIN OXYCODONE, LIDOCAINE PATCH AND VOLTAREN GEL ADMINISTERED ORDERED. PT UP WITH 1 MIN ASSIST, GB AND WALKER AND TOLERATED WELL. DRESSED AND PACKED, READY FOR DC THIS MORNING. PT TEACHING AND INSTRUCTIONS TO BE COMPLETED AT THE BEDSIDE BEFORE DC. Q1H VISUAL CHECKS. CALL LIGHT WITHIN REACH. FALL PRECAUTIONS IN PLACE
--- NOTE | 2020-08-11 16:51 | NUR ---
PT DISCHARGING TODAY TO HOME WITH [facility] RECEIVED CONFIRMATION THEY WILL NOTIFY PT TO SET UP VISITS.
--- NOTE | 2020-08-13 15:30 | HC ---
[facility] [place] [address] CONSULTATION Name: HOSEA LEDBETTER Room #: 514-P [facility] IN M.R.#: [id number] Admission: 08/04/20 Attend Phys: Kenton Gilbert MD Discharge: 08/11/20 Date of : 32 Report #: [id number] THIS REPORT FOR: cc: Carlene Galeano MD, Paula V. MD Deutch,Aleksander Stringer. PhD ~ DATE OF SERVICE: 08/05/2020 NEUROBEHAVIORAL STATUS EXAM ATTENDING PHYSICIAN: Kenton Gilbert MD GUNNER'S MATE: Aleksander Bajwa, PhD CLINICAL PRESENTATION: The patient is an 89-year-old female admitted to the hospital on 08/01/2020 after a fall backwards in which she sustained immediate back pain. She had an MRI that revealed moderate lumbar spinal stenosis, L1 endplate compression fracture, L3 endplate acute and subacute compression fracture, C5-C6 moderate to severe neural foraminal stenosis and an acute T12 compression fracture. Patient underwent a successful kyphoplasty for the acute T12 compression fracture, but still has mid to low back pain with radiation down both legs. Significant anxiety is reported that has required medication. Her medical problem list included acute anxiety, chest pain, closed head injury, closed right trimalleolar fracture, compression fracture, contusion of the left hip, dehydration, fall, intractable pain, near syncope, nonspecific chest pain, renal insufficiency, status post fall, UTI, and weakness. Her assessment on admission to the rehab unit is a lumbar radiculopathy with bilateral lower extremity weakness, acute T12 compression, status post kyphoplasty on 08/02/2020, lumbar spinal stenosis, cervical neural foraminal stenosis, premorbid peripheral neuropathy, hypertension, hyperlipidemia, osteoporosis, hard of hearing, anxiety and constipation. A complete description of her medical condition and history can be found in her medical record. Neuropsychological consultation was requested to provide assistance in the assessment of cognitive and emotional status and provide recommendations and services. Prior to this most recent admission, the patient reports having been in an independent apartment in a fdc community. She reports having discontinued driving about 8 years ago. She is a high school graduate. 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 The patient had 3 children. One at . [facility] [address] [place] [address] CONSULTATION Name: HOSEA LEDBETTER Room #: 514-P [facility] IN M.R.#: [id number] Admission: 08/04/20 Attend Phys: Kenton Gilbert MD Discharge: 08/11/20 Date of : 32 Report #: [id number] TECHNIQUES UTILIZED: Clinical interview, review of medical records, staff consultation and behavioral observation, mini mental status exam 2 standard version, clock drawing and verbal fluency assessment. EXAMINATION FINDINGS: The patient was alert and cooperative with the assessment. She presents with word finding deficits and was quite fidgety and restless during the assessment. She accurately described what happened that required her hospitalization. Her symptoms include difficulty with sleep, appetite, anxiety, depression and word finding. She reports a prior history of treatment for depression. Performance on the MMSE 2 brief version was extremely low with a raw score of 10/16. She was 3/3 for initial registration, 3/5 for orientation to time and 4/[address]. She was 0/3 for immediate recall of 3 items after brief time delay and distraction. Performance on the MMSE 2 standard version was extremely low with a raw score of 20/30, which is a T score of 25 and percentile rank of 1. She was 2/5 for serial sevens, 2/2 for naming, 1/1 for repetition, 3/3 for auditory comprehension. She could read and follow a single command and write a sentence. The patient had difficulty with copying a simple geometric design suggesting some visual spatial deficits. Verbal fluency assessment was inconsistent. Letter fluency was in the average range with a T score of 51 and percentile rank of 54. Deficits in category fluency are noted with a T score of 30 and percentile rank of 2. Overall, verbal fluency, total fluency was low average with a T score of 40, percentile rank of 16. The patient is presenting with deficits in cognition likely associated with an impaired immediate recall, sustained concentration and attention and executive functioning. She was fidgety and restless during the assessment. DIAGNOSTIC IMPRESSION: Neurocognitive disorder -- extent to be determined, likely in the moderate range. Unspecified depressive disorder with anxiety. RECOMMENDATIONS: Speech therapy to assist with cognitive stimulation and assistance with utilization of compensatory strategies. While the patient may benefit from the use of an antidepressant with anxiolytic features, she is taking trazodone at bedtime and gabapentin. The use of relaxation strategies will be of benefit along with reassurance regarding her recovery and verbal praise and complements about participation in therapies with an emphasis on [address] [address] CONSULTATION Name: HOSEA LEDBETTER Room #: 514-P [facility] IN M.R.#: [id number] Admission: 08/04/20 Attend Phys: Kenton Gilbert MD Discharge: 08/11/20 Date of : 34 Report #: [id number] areas of improved functioning to improve self-confidence. Thank you very much for allowing me to provide the consultation on this patient. <ELECTRONICALLY SIGNED> By: Aleksander Bajwa, PhD 08/13/20 [phone] [id number] Aleksander Bajwa, PhD /nt
== END 2020-08-11 11:48 | disposition home health service (06) | DRG 552 ==
PROVIDERS: Nurse Practitioner Family; ADMIT Physical Medicine & Rehabilitation; ATTEND Physical Medicine & Rehabilitation
DX: M54.16 Radiculopathy, lumbar region (principal); M48.54XA Collapsed vertebra, not elsewhere classified, thoracic region, initial encounter for fracture; M48.061 Spinal stenosis, lumbar region without neurogenic claudication; M48.02 Spinal stenosis, cervical region; G62.9 Polyneuropathy, unspecified; I10 Essential (primary) hypertension; E78.5 Hyperlipidemia, unspecified; M81.0 Age-related osteoporosis without current pathological fracture; K59.00 Constipation, unspecified; F41.8 Other specified anxiety disorders; R41.9 Unspecified symptoms and signs involving cognitive functions and awareness; Z60.2 Problems related to living alone; K58.9 Irritable bowel syndrome, unspecified; E55.9 Vitamin D deficiency, unspecified; R53.81 Other malaise; Z20.828 Contact with and (suspected) exposure to other viral communicable diseases; Z90.49 Acquired absence of other specified parts of digestive tract; Z87.891 Personal history of nicotine dependence
CPT/HCPCS: 10112